=== PATIENT | female | born 1980 | race Caucasian/White ===

== ENCOUNTER 2020-06-26 13:25 | Outpatient (CLI) | payer OTHER, SELFPAY ==
--- NOTE | ~2020-06-26 | US_ITS ---
EXAMINATION: 1. US FNA w image guidance 2. US FNA additional DATE: 06/26/2020 14:34 INDICATION: Nontoxic multinodular goiter. TECHNIQUE: The procedure and its benefits, risks, and benefits were discussed with the patient. Risks specifical ly discussed included bleeding. The patient verbalized understanding of the risks and agreed to proce ed. The neck was prepped and draped in the usual sterile manner. 1% lidocaine was used for local ane sthesia. Five passes were made with a 25G needle into the lesion in right thyroid lobe. Appropriate needle location was documented with continuous sonographic guidance. Five passes were made with a 25G needle into the lesion in left thyroid lobe. Appropriate needle loc ation was documented with continuous sonographic guidance. There were no immediate complications. T he patient understood to call the ordering physician for results after a week and a half and verbaliz ed that understanding. FINDINGS: Grayscale ultrasound images demonstrate needles advanced into a 2.1 cm nodule in right thyroid lobe f or biopsy. Grayscale ultrasound images demonstrate needles advanced into a 2.9 cm nodule in left thyr oid lobe. IMPRESSION: 1. Ultrasound-guided fine needle aspiration of a right thyroid nodule. 2. Ultrasound-guided fine-needle aspiration of a left thyroid nodule. Reviewed, dictated and finalized at location A. SPLITTER IMPRESSION: 1. Ultrasound-guided fine needle aspiration of a right thyroid nodule. 2. Ultrasound-guided fine-needle aspiration of a left thyroid nodule.
== END 2020-06-26 13:26 | disposition home or self-care (01) ==
LOC: ANHIMG 13:38
PROVIDERS: PCP Nurse Practitioner Psychiatric/Mental Health; Visit Provider Otolaryngology
DX: E04.2 Nontoxic multinodular goiter (principal)
CPT/HCPCS: 10005; 10006; 88173; 88305

== ENCOUNTER 2020-12-16 11:23 | Outpatient (CLI) | payer OTHER, SELFPAY ==
[2020-12-16 13:58] LABS: SARS-CoV-2 Ag Negative (Negative)
== END 2020-12-16 11:24 | disposition home or self-care (01) ==
PROVIDERS: PCP Nurse Practitioner Psychiatric/Mental Health; Visit Provider Nurse Practitioner Psychiatric/Mental Health
DX: R09.81 Nasal congestion (principal); Z20.822 Contact with and (suspected) exposure to COVID-19
CPT/HCPCS: 87426; C9803

== ENCOUNTER 2021-01-20 12:02 | Outpatient (CLI) | payer OTHER, SELFPAY ==
[2021-01-20 12:25] LABS: Basophils Absolute Auto 0.04 K/mm3 (0.00-0.10); Basophils Percent Auto 0.4 % (0.0-1.0); Eosinophils Absolute Auto 0.26 K/mm3 (0.02-0.50); Eosinophils Percent Auto 2.3 % (1.0-6.0); Hematocrit 45.5 % (35.0-49.0); Hemoglobin 15.3 g/dL (12.0-15.0); Immature Granulocyte Absolute 0.04 K/mm3 (0.00-0.00); Immature Granulocyte Percent A 0.4 % (0.0-0.0); Lymphocytes Absolute Auto 2.66 K/mm3 (1.10-4.50); Lymphocytes Percent Auto 23.7 % (18.0-42.0); Mean Corpuscular HGB Conc 33.6 g/dL (32.0-36.0); Mean Corpuscular Hemoglobin 29.4 pg (27.0-31.0); Mean Corpuscular Volume 87.5 fL (78.0-102.0); Mean Platelet Volume 10.3 fl (9.2-11.8); Monocytes Absolute Auto 0.48 K/mm3 (0.10-0.90); Monocytes Percent Auto 4.3 % (2.0-11.0); Neutrophils Absolute Auto 7.7 K/mm3 (1.7-7.2); Neutrophils Percent Auto 68.9 % (50.0-70.0); Platelet Count Result 431 K/mm3 (150-420); White Blood Count 11.2 K/mm3 (4.8-10.8)
[2021-01-20 13:21] LABS: Alanine Aminotransferase 37 U/L (14-59); Albumin Level 4.1 g/dL (3.4-5.0); Alkaline Phosphatase 96 U/L (46-116); Anion Gap 11 mmol/L (8-16); Aspartate Amino Transferase 23 U/L (15-37); Bilirubin,Total 0.7 mg/dL (0.00-1.00); Blood Urea Nitrogen 10 mg/dL (7-18); Calcium 9.2 mg/dL (8.5-10.1); Carbon Dioxide 27 mmol/L (21-32); Chloride 104 mmol/L (98-108); Cholesterol 177 mg/dL (0-200); Estimated Glomerular Filt Rate > 60; Glucose 93 mg/dL (70-99); HDL Direct 44 mg/dL (40-60); LDL Cholesterol Calculated 122 mg/dL (<130); Osmolality Calculated 293 mOsm/kg (285-295); Potassium 4.3 mmol/L (3.5-5.1); Sodium 142 mmol/L (136-145); Thyroid Stimulating Hormone 1.28 uIU/mL (0.36-3.74); Total Protein 7.9 g/dL (6.4-8.2); Triglycerides 56 mg/dL (0-150)
[2021-01-20 13:28] LABS: Erythrocyte Sedimentation Rate 16 mm/hr (0-15)
== END 2021-01-20 12:03 | disposition home or self-care (01) ==
LOC: CHSLAB 12:04
PROVIDERS: PCP Family Medicine; Visit Provider Nurse Practitioner Psychiatric/Mental Health
DX: G44.009 Cluster headache syndrome, unspecified, not intractable (principal); Z13.220 Encounter for screening for lipoid disorders; G90.01 Carotid sinus syncope
CPT/HCPCS: 36415; 80053; 80061; 84443; 85025; 85652

== ENCOUNTER 2021-01-20 13:56 | Emergency (ER) | payer OTHER, SELFPAY ==
--- NOTE | ~2021-01-20 | CT_ITS ---
EXAMINATION: CT brain wo con DATE: 01/20/2021 14:39 INDICATION: Headache TECHNIQUE: Computed tomography (CT) of the head was performed without intravenous contrast. Sagittal and coronal reconstructions were performed. The mA was adjusted according to patient size. Iterative reconstruction technique was employed. The dose-length product was 605.33 mGy-cm. COMPARISON: None FINDINGS: No acute intracranial hemorrhage, acute infarction or abnormal extra axial fluid collection. Ventricl es are normal and symmetric. No mass/mass effect. The orbits, paranasal sinuses and mastoid air cells are normal. IMPRESSION: 1. Normal head CT. No acute intracranial process. Reviewed, dictated and finalized at location A.
[2021-01-20 14:00] VITALS: BP 163/104; PULSE 109; RESP 16; TEMP 36.6; O2SAT 97
--- NOTE | 2021-01-20 14:04 | ED.HA ---
HPI - Headache General Chief Complaint: Headache Stated Complaint: high blood pressure Source: patient and RN notes reviewed Mode of arrival: ambulatory Limitations: no limitations History of Present Illness MD elicited complaint: headache Onset (ago): week(s) (1) Onset description: gradually and while at rest Location: left, frontal, temporal and occipital Severity: severe Quality & Timing: throbbing and dull Exacerbating factors: light and noise Relieving factors: nothing and other (taking exedrin like candy ) Context: occurred at rest Associated symptoms: nausea and photophobia Treatments prior to arrival: ibuprofen Related Data Home Medications Medication Instructions Recorded Confirmed No Home Medications 01/20/21 01/20/21 Allergies Allergy/AdvReac Type Severity Reaction Status Date / Time No Known Allergies Allergy Verified 06/05/20 15:04 Review of Systems Review of Systems: All systems reviewed & are unremarkable except as noted in HPI and below Neurologic: Denies confusion, Denies vertigo, Denies dizziness, Denies syncope, Reports focal weakness (left face has been present for a year), Denies numbness and Denies weakness PMFSH Past Medical History Medical History (Updated 01/20/21 @ 15:22 by Elton Weston MD) Multinodular goiter Surgical History Surgical History (Updated 01/20/21 @ 14:46 by Elton Weston MD) Hx of cholecystectomy Social History Social History Smoking status: Never smoker Second hand tobacco smoke exposure: No Alcohol intake: current Substance use: current Substance use type: marijuana Course Course Emergency Course: I reviewed CT head results. Discharge Plan Discharge Clinical Impression: Headache Qualifiers: Headache type: tension-type Headache chronicity pattern: acute headache Intractability: not intractable Qualified Code(s): G44.209 - Tension-type headache, unspecified, not intractable Patient Disposition: Home, Self-Care Condition: Stable Instructions: Tension Headache (ED) Additional Instructions: All your primary care physician to consider getting started on blood pressure medication. Prescriptions: No Action No Home Medications RF: 0 Follow-up/Referrals: José Miguel,MD Xander [Primary Care Provider] - Time of Disposition: 15:
[2021-01-20 15:00] VITALS: BP 145/105; PULSE 97; RESP 18; O2SAT 95
[2021-01-20] MEDS: cloNIDine HCL 0.1 MG TABLET 0.2 MG PO (15:06)
[2021-01-20] MEDS: KETOROLAC (*BKC) 60 MG/2 ML VIAL IM (15:06)
[2021-01-20 15:26] VITALS: BP 155/107; PULSE 86; RESP 18; O2SAT 97
== END 2021-01-20 15:30 | disposition home or self-care (01) ==
PROVIDERS: Emergency Provider Emergency Medicine; PCP Family Medicine
DX: G44.209 Tension-type headache, unspecified, not intractable (principal)
CPT/HCPCS: 70450; 96372; 99283; 99284; A9270; J1885

== ENCOUNTER 2021-01-23 08:51 | Outpatient (CLI) | payer OTHER, SELFPAY ==
--- NOTE | ~2021-01-23 | US_ITS ---
EXAMINATION: US carotid duplex BI EXAM DATE: 01/23/2021 09:14 INDICATION: Neck pain, headaches. High blood pressure. TECHNIQUE: Grayscale, color and pulsed Doppler images of the cervical carotid arteries were obtained . The degree of vessel stenosis is placed in one of the following categories: normal, <50% stenosis, 50-69% stenosis, >=70% stenosis but less than near-occlusion, near-occlusion, or occlusion. Note that percent stenosis relative to normal distal artery lumen diameter is indirectly measured from velocit y measurements as described by Mike, et al. Radiology 2003; 229:340-346. There is no prior study fo r comparison. FINDINGS: RIGHT SIDE: Right common carotid artery peak systolic velocity (PSV in cm/s): 105 Right bulb/internal carotid artery peak systolic velocity (PSV in cm/s): 98 Right internal carotid artery end diastolic velocity (EDV in cm/s): 32 Right ICA/CCA peak systolic ratio: 0.9 Right external carotid artery peak systolic velocity (PSV in cm/s): 138 Right vertebral artery antegrade flow: yes There is no focal plaque identified. LEFT SIDE: Left common carotid artery peak systolic velocity (PSV in cm/s): 108 Left bulb/internal carotid artery peak systolic velocity (PSV in cm/s): 87 Left internal carotid artery end diastolic velocity (EDV in cm/s): 35 Left ICA/CCA peak systolic ratio: 0.8 Left external carotid artery peak systolic velocity (PSV in cm/s): 108 Left vertebral artery antegrade flow: yes There is no focal plaque identified. IMPRESSION: 1. Normal right internal carotid artery. 2. Normal left internal carotid artery. > Reviewed, dictated and finalized at location B.
== END 2021-01-23 08:52 | disposition home or self-care (01) ==
LOC: CHSIMG 08:52
PROVIDERS: PCP Nurse Practitioner Psychiatric/Mental Health; Visit Provider Nurse Practitioner Psychiatric/Mental Health
DX: M54.2 Cervicalgia (principal)
CPT/HCPCS: 93880

== ENCOUNTER 2023-08-26 09:48 | Outpatient (CLI) | payer OTHER, SELFPAY ==
--- NOTE | ~2023-08-26 | MR_ITS ---
EXAMINATION: MR brain/brain stem wo/w con DATE: 08/26/2023 12:52 INDICATION: Trigeminal neuralgia. TECHNIQUE: Magnetic resonance imaging (MRI) of the brain and brainstem was performed without and with 20 mL MultiHance intravenous contrast. COMPARISON: None. FINDINGS: There is no intracranial hemorrhage, acute infarction, or abnormal intracranial mass lesion . The ventricles are normal in size. There is mild mucosal thickening in the paranasal sinuses. The o rbits are normal. The mastoid air cells are normal. IMPRESSION: 1. Normal brain. Note that high-resolution imaging of the trigeminal nerves was not performed. High-r esolution sequences from the IAC protocol are recommended. Reviewed, dictated and finalized at location A. CE CADET IMPRESSION: 1. Normal brain. Note that high-resolution imaging of the trigeminal nerves was not performed. High-resolution sequences from the IAC protocol are recommended .
== END 2023-08-26 09:49 | disposition home or self-care (01) ==
LOC: CHSIMG 09:50
PROVIDERS: PCP Registered Nurse; Visit Provider Registered Nurse
DX: G50.0 Trigeminal neuralgia (principal)
CPT/HCPCS: 70553; A9577

== ENCOUNTER 2023-08-30 09:51 | Outpatient (CLI) | payer OTHER, SELFPAY ==
--- NOTE | ~2023-08-30 | MM_ITS ---
EXAMINATION: MM screening homero BI w shea HISTORY: Screening TECHNIQUE: Craniocaudal and mediolateral oblique 3-D tomosynthesis images were obtained and synthetic 2-D images were generated. CAD analysis was submitted and interpreted. COMPARISON: No prior mammogram is available for comparison at this institution. BREAST PARENCHYMAL COMPOSITION: Not dense: There are scattered areas of fibroglandular density. FINDINGS: There are bilateral breast asymmetries in the upper outer quadrant of the left breast poste riorly. There are benign breast calcifications. No architectural distortion. IMPRESSION: 1. Bilateral breast asymmetries. 2. Additional mammographic views and possible breast ultrasound are recommended. BI-RADS Category 0: Incomplete: Needs additional imaging evaluation. Reviewed, dictated and finalized at location A. SH ROLLS OPERATOR IMPRESSION: 1. Bilateral breast asymmetries. 2. Additional mammographic views and possible breast ultrasound are recommended . BI-RADS Category 0: Incomplete: Needs additional imaging evaluation.
== END 2023-08-30 09:52 | disposition home or self-care (01) ==
LOC: CHSIMG 09:53
PROVIDERS: PCP Registered Nurse; Visit Provider Registered Nurse
DX: Z12.31 Encounter for screening mammogram for malignant neoplasm of breast (principal); R92.8 Other abnormal and inconclusive findings on diagnostic imaging of breast
CPT/HCPCS: 77063; 77067

== ENCOUNTER 2023-09-02 09:36 | Outpatient (CLI) | payer OTHER, SELFPAY ==
--- NOTE | ~2023-09-02 | MMUS_ITS ---
EXAMINATION: MM diagnostic homero BI w shea, US breast BI limited HISTORY: Follow-up breast asymmetries TECHNIQUE: Additional 3-D tomosynthesis images of the breasts were performed and synthetic 2-D images were generated. CAD analysis was submitted and interpreted. High resolution bilateral limited breast ultrasound was performed. COMPARISON: 08/30/2023 BREAST PARENCHYMAL COMPOSITION: Not dense: There are scattered areas of fibroglandular density. FINDINGS: MAMMOGRAPHIC FINDINGS: There are persistent nodular asymmetries in lateral and both breasts. No suspicious calcifications or architectural distortion. ULTRASOUND: Complete bilateral US of all 4 quadrants of the breasts and retroareolar region was reviewed. Right breast: There are small cysts at 6 and 9:00 positions of the right breast measuring 4 mm or les s. Left breast: Normal heterogeneous echotexture without focal solid or cystic mass. No sonographic elsie elate to left breast asymmetries. IMPRESSION: 1. Probable benign bilateral breast asymmetries. No sonographic evidence for malignancy. 2. Recommend 6 month follow-up diagnostic bilateral mammogram. BI-RADS category 3, probably benign findings. Reviewed, dictated and finalized at location A. X SERVER ADMINISTRATOR IMPRESSION: 1. Probable benign bilateral breast asymmetries. No sonographic evidence for ma lignancy. 2. Recommend 6 month follow-up diagnostic bilateral mammogram. BI-RADS category 3, probably benign findings.
[2023-09-02 10:00] LABS: Hemoglobin A1C 5.5 % (<5.7)
[2023-09-02 12:25] LABS: Thyroid Stimulating Hormone 1.72 uIU/mL (0.36-3.74)
== END 2023-09-02 09:37 | disposition home or self-care (01) ==
LOC: CHSIMG 09:40
PROVIDERS: PCP Registered Nurse; Visit Provider Family Medicine
DX: E11.9 Type 2 diabetes mellitus without complications (principal); E06.3 Autoimmune thyroiditis; R92.8 Other abnormal and inconclusive findings on diagnostic imaging of breast
CPT/HCPCS: 36415; 76642; 77062; 77066; 83036; 84443; G0279

== ENCOUNTER 2023-09-04 08:33 | Outpatient (CLI) | payer OTHER, SELFPAY ==
--- NOTE | ~2023-09-04 | MR_ITS ---
EXAMINATION: Additional imaging MR DATE: 09/04/2023 11:45 INDICATION: Trigeminal neuralgia. TECHNIQUE: Magnetic resonance imaging (MRI) of the brain and brainstem was performed without and with 20 mL MultiHance intravenous contrast. COMPARISON: Brain MRI 08/26/2023 FINDINGS: There is no abnormal mass lesion. The ventricles are normal in size. The cisternal segments of the trigeminal nerves are normal. No vascular loop compression. The Meckel caves are enlarged. Th e internal auditory canals, inner ears, and tympanic cavities are normal. The mastoid air cells are n ormal. IMPRESSION: 1. Normal trigeminal nerves. No vascular loop compression. 2. Enlarged Meckel caves. This finding may be a normal variant, but can be associated with increased intracranial pressure. Reviewed, dictated and finalized at location A. BASIC IMPRESSION: 1. Normal trigeminal nerves. No vascular loop compression. 2. Enlarged Meckel caves. This finding may be a normal variant, but can be asso ciated with increased intracranial pressure.
== END 2023-09-04 08:34 | disposition home or self-care (01) ==
PROVIDERS: PCP Registered Nurse; Visit Provider Registered Nurse
DX: G50.0 Trigeminal neuralgia (principal)
CPT/HCPCS: 99199

== ENCOUNTER 2025-01-16 12:22 | Outpatient (CLI) | payer OTHER, SELFPAY ==
--- NOTE | ~2025-01-16 | US_ITS ---
EXAMINATION: US thyroid DATE: 01/16/2025 12:47 INDICATION: Thyroid nodule TECHNIQUE: Multiple ultrasound images of the thyroid were obtained. COMPARISON: None. FINDINGS: The right thyroid lobe measures 6.5 x 3.4 x 2.8 cm. The left thyroid lobe measures 6.6 x 3.8 x 3.3 c m. Thyroid isthmus measures up to 9 mm in thickness. There are a few solid isoechoic nodules which ar e wider than tall with smooth margins and without echogenic foci (TI-RADS 3, mildly suspicious , FNA if >=2.5 cm, annual followup is >=1.5 cm) in the left thyroid lobe the largest measuring 3.0 cm. Ther e is also a 4.0 cm TI RADS3 nodule inferior right thyroid with identical imaging features. IMPRESSION: 1. Multinodular goiter with multiple TI RADS3 nodules the 2 largest wedging 4.0 cm on the left and 3. 0 on the right which meet criteria for ultrasound guided biopsy which would be recommended. Reviewed, dictated and finalized at location A. IMPRESSION: 1. Multinodular goiter with multiple TI RADS3 nodules the 2 largest wedging 4.0 cm on the left and 3.0 on the right which meet criteria for ultrasound guided biopsy which would be recommended.
--- OUTSIDE RECORDS SUMMARY | 2025-01-16 12:26 | XMS_ITS | Data Portability ---
Author Organization [facility] , [facility] Address [address] [place] [address] Assessment No assessment recorded. Plan of Treatment Reminders Order Date Submit Date Provider Last Modified By Organization Details Last Modified Time Details Appointments None recorded. Lab HPV E6+E7 mRNA, qualitative PCR, [facility] [address] [place] [address], [address], 4 15:02:05 pap, LB - last pap 2020WNL, cervix, hx abnormal pap, no b/c used 2023 [facility], [address] [place], [address], 4 11:57:38 Referral None recorded. Procedures None recorded. Surgeries None recorded. Imaging None recorded. Medication Orders None recorded. Patient TargetsNo targets recorded. Patient Instructions Encounter Date Encounter Id Patient Instructions Last Modified By Organization Details Last Modified Time 01/17/2024 [id number] body mass index: care instructions tyenne Not available 01/17/2024 13:49:21 Reason for Referral None Reported. Results Created Date Observation Date Name Description Value Unit Range Abnormal Flag Note LastModifiedBy Organization Detail LastModifiedTime 01/17/20 24 01/19/2024 HPV HIGH RISK HPV high risk Negati ve negati ve normal The HPV High Risk assay is inten ded for use as co-te sting with cytol ogy and not as a subst itute for regul ar cervi gabe cytol ogy scree mane. This assay is not inten ded for use as a scree mane devic e for women under age 30 with rodrigo l cervi gabe cytol ogy. Not Available [address] [place], [address], 01/19/2024 15:02:05 01/17/20 24 01/25/2024 THINP REP TIS PAP clinical information: normal Previ ous abnor mal NO B/C USED Not Available [address] [place], [address], 01/25/2024 11:57:37 01/17/20 24 01/25/2024 THINP REP TIS PAP LMP: normal 12/29 Not Available [address], [address], 01/25/2024 11:57:37 01/17/20 24 01/25/2024 THINP REP TIS PAP prev. Pap: normal LAST PAP 2020 WNL Not Available [address] [place], [address], 01/25/2024 11:57:37 01/17/20 24 01/25/2024 THINP REP TIS PAP prev. BX: normal NONE GIVEN Not Available [address] [place], [address], 01/25/2024 11:57:37 01/17/20 24 01/25/2024 THINP REP TIS PAP source: normal Cervi x Not Available [address] [place], [address], 01/25/2024 11:57:37 01/17/20 24 01/25/2024 THINP REP TIS PAP statement of adequacy: normal Satis facto ry for evalu ation . Endoc ervic al/tr ansfo rmati on zone compo nent prese nt. Parti ally obscu ring infla mmati on Not Available [address] [address] [place], [address], 01/25/2024 11:57:37 01/17/20 24 01/25/2024 THINP REP TIS PAP interpretati on/result: normal Cytol ogy Resul ts: Negat noble for intra epith elial lesio n or malhever jhoan . Not Available [address] [address], [place], [address], 01/25/2024 11:57:37 01/17/20 24 01/25/2024 THINP REP TIS PAP comment: normal This Pap test has been evalu ated with compu ter alfred lucas techn ology . Micro scopi c featu res prese nt sugge stive of an inter ferin g subst ance, inclu ding cellu lar debri s, mucus , or possi ble lubri cant (gurpreet ent or provi tiffanie use). Use of lubri cant is not recom mara d. Not Available [address], [place], [address], 01/25/2024 11:57:37 01/17/20 24 01/25/2024 THINP REP TIS PAP cytotechnolo gist: normal RRD, CT( CP) CT Scree mane Locat ion: [facility] [address] [place] [address] Not Available [address] [address] [place], [address], 01/25/2024 11:57:37 01/17/20 24 01/25/2024 THINP REP TIS PAP review cytotechnolo gist: normal MSJ, CT( CP) CT Scree mane locat ion: [facility] [address] [place] [address] Not Available [address] [address] [place], [address], 01/25/2024 11:57:37 01/17/20 24 01/25/2024 THINP REP TIS PAP comment EXPLA NATOR Y NOTE: The Pap is a scree mane test for cervi gabe cance r. It is not a diagn ostic test and is subje ct to false negat noble and false posit noble resul ts. It is most relia ble when a satis facto ry sampl e, regul tatum obtai jah, is submi tted with relev ant clini gabe findi ngs and histo ry, and when the Pap resul t is evalu ated along with histo remi and curre nt clini gabe infor matio n. Not Available [address] [address] [place], [address], 01/25/2024 11:57:37 Result Notes None recorded. 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 ; Progress : Stable Added By: Kentrell Frederick Add to Current Problems : YES ProblemS tatus: Current Not Available [facility] 2 17:46:52 Pain Completed 201506/06/2016 Lower abdomina l pain, unspecif ied; Progress : Stable Added By: Claudia Willingham Add to Current Problems : NO ProblemS tatus: Resolve Not Available [facility] 2 17:46:59 Sampling of vagina for Papanico laou smear Active 2020 Encounte r for gynecolo gical examinat ion (general ) (routine ) without abnormal findings ; Progress : Stable Added By: Inés Giron Add to Current Problems : YES ProblemS tatus: Current Not Available [facility] 2 17:46:51 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 ; Location : None Progress : Stable Added By: lCaudia Willingham Add to Current Problems : NO ProblemS tatus: Current Not Available [facility] 2 17:46:57 Abnormal weight gain 042110425 Completed 201602/12/2017 Excessiv e weight gain; Location : None Progress : Stable Added By: Farhana Mello Add to Current Problems : YES ProblemS tatus: Resolve Not Available [facility] 2 21:30:11 Screenin g for malignan t neoplasm of cervix Active 2020 Encounte r for screenin g for malignan t neoplasm of cervix; Progress : Stable Added By: Inés Giron Add to Current Problems : YES ProblemS tatus: Current Not Available [facility] 2 17:47:06 Problem Notes None recorded. Procedures Surgical History Date Name Laterality Status Provider Name and Address Organization Details Recorded Time 4 Most Recent Mammogram completed [facility] 01/17/2024 12:32:24 Date of Last Pap Smear completed [facility] 01/17/2024 12:34:06 Gall bladder completed [facility] 01/17/2024 12:32:24 Imaging Results None recorded. Procedure Notes None recorded. Medical Equipment None Reported. Allergies No known drug allergies Medications Name Sig Start Date Stop Date Status Note LastModified by Organization Details LastModified Time phentermi ne 15 mg capsule TAKE 1 CAPSULE BY MOUTH EVERY MORNING 01/16 completed Not Available Not Available Not Available lorazepam 0.5 mg tablet TAKE 1 TABLET BY MOUTH ONCE 30 TO 60 MINUTES PRIOR TO PROCEDUR E active Not Available Not Available No t Available gabapenti n 100 mg capsule TAKE 1 CAPSULE BY MOUTH THREE TIMES DAILY active Not Available Not Available No t Available fluoxetin e 20 mg capsule take 1 capsule (20 mg) by oral route daily 1 week prior to menses 01/16 completed FLUoxeti ne 20 mg oral capsule RxNorm: 641433 Allow Substitu tion: True Refill Denied: No Edited by: Kentrell Villalpando) on 11/19/19 21 Stopped by: Kentrell Villalpando) on Not Available Not Available Not Available Vesicare 10 mg tablet take 1 tablet (10 mg) by oral route once daily active Vesicare 10 mg oral tablet RxNorm: 976981 Allow Substitu tion: False Refill Denied: No Refill DateOccu rred: 11/19/19 21 Edited by: Kentrell Villalpando) on 11/19/19 21 Stopped by: Kentrell Villalpando) on Not Available Not Available Not Available Topamax Take 1 tablet(s ) by mouth daily 04/07 completed Topamax 50mg Tablet RxNorm: 081426 Allow Substitu tion: True Refill Denied: No Refill DateOccu rred: 01/06/20 13 Not Available Not Available Not Available Vitals Date Recorded Body weight Systolic And Diastolic Provider Name and Address Organization Details Last Updated DateTime 01/17/2024 003331.2 g 118/72 mm[Hg] Yocasta Finn [facility] 01/17/2024 12:48:38 Social History Question Answer Notes LastModified by [facility] Details LastModified Time Tobacco Smoking Status Current Some Day Smoker Yocasta Finn [facility] 01/17/2024 12:32:24 Are You Blind Or Do You Have Difficulty Seeing? No Information not available 01/17/2024 Are You Deaf Or Do You Have Serious Difficulty Hearing? No Information not available 01/17/2024 What Type Of Diet Are You Following? REGULAR Information not available 01/17/2024 Which Illicit Or Recreational Drugs Have You Used? Marijuana Information not available 01/17/2024 How Many Children Do You Have? 2 Information not available 01/17/2024 What Is Your Relationship Status? Information not available 01/17/2024 Are You Sexually Active? Yes Information not available 01/17/2024 At What Age Did You Start Smoking Tobacco? 41 Information not available 01/17/2024 How Much Tobacco Do You Smoke? 1 PPW Information not available 01/17/2024 How Many Years Have You Smoked Tobacco? 2 Information not available 01/17/2024 Sex: Unknown Functional Status Question Answer Note LastModified by Organizat ion Details LastModified Time Do you use any illicit or recreational drugs? Yes Information not available 01/17/2024 Are you currently employed? No Information not available 01/17/2024 Mental Status None recorded. Family History Relationship Description Onset Age of this Age Resolved Age Notes LastModified by Organization Details LastModified Time Paternal Grandmother Malignant neoplasm of ovary Not available 2023 12:32:24 Mother Hyperthyroid ism Not available 2023 12:32:24 Mother Depressive disorder Not available 2023 12:32:24 Maternal Grandmother Malignant tumor of cervix Not available 2023 12:32:24 Father Hypercholest erolemia Not available 2023 12:32:24 Father Hypertensive disorder Not available 2023 12:32:24 Father Diabetes mellitus Not available 2023 12:32:24 Medical History Condition Response Autoimmune disease Y Gynecological History Statement/Question Response Flow Heavy Date of last HPV 11/18/2020 Frequency of Cycle (Q days) 21-24 Date of LMP 12/30/2023 Date of Last Pap Smear 11/21/2020 Duration of Flow (days) 4-5 Most Recent Mammogram 08/12/2023 Current Control Method None Age at Menarche 12 Obstetrics History GPAL:G 0 P 0 0 0 0 Past Encounters Encounter ID Performer Location Encounter Start Date Encounter Closed Date Diagnosis/Indication Diagnosis SNOMED-CT Code Diagnosis ICD10 Code Diagnosis Note [id number] [facility] [address] [place] [address] 01/17/2024 12:30:42 01/17/2024 13:09:54 Gynecologic examination 62609196 Z01.419 COUNSELING was provided today regarding the following topics: healthy eating habits. Patient education given on weight management ., regular exercise. Patient handout given on Fitness, breast self-exam, STD prevention , COVID Vaccine: R/B of vaccine discussed today., and Calcium and Vitamin D. Advised to avoid sick contacts, practice social distancing , good handwashin g. If you develop respirator y symptoms, fever,coug h, or shortness of breath you should contact healthcare provider immediatel y. and Salvage Diver Specific: Annual Salvage Diver screening: , monthly self breast exam, calcium supplement ation, Multivitam in daily, , maintain recommende d screening guidelines FOLLOW-UP: in one year. Screening for malignant neoplasm of cervix 601254420 Z12.4 Depression screening 171 701013 Z13.31 refer to intake screening Menorrhagia 645278876 N9 2.0 will discuss surgical options with physician Female str ess incontinence 92478657 N39.3 plan to follow up for UDT and to see Dr Mckeon., Prefers [place] office due to distance to clinic. Will call to help make an appt. Health Concerns Section Related Observation LastModified by Organization Detai ls LastModified Time None Recorded Concern Status LastModified by Organization Details LastModified Time None Recorded Advance Directives Directive None Recorded Payers Insurance Date Sequence Insurance Name Policy Number Policy Ibanez Covered Member ID Ibanez Member ID Guarantor Name 04/20/2024 1 [facility] - DOS ON OR AFTER 21 (MEDICAID REPLACEMENT - HMO) Damien Vásquez [id number] Octoberkenna Vásquez Notes Date Note Type Note Provider Name and Address Organization Details Recorded Time 01/17/2024 text/html Annual GYNReport ed bypatient.History: no gynecologic complaints Menstrual cycle:Severe dysmenorrhea;Eran rhagia; Wants to discuss ablation Urinary symptoms:Incontine nce Vulva:No genital lesion Vagina:Normal vaginal discharge Breast:No breast pain; No breast lump; No nipple discharge Current Contraception:[place] gamous relationship; control not practiced Sexual complaints:No sexual complaints Menopausal Symptoms:Hot flashes;Insomnia due to night sweats(Occasional) Psychological symptoms:No depression; No anxiety Preventive measures:Encourage self breast examination; Encourage regular exercise; Encourage regular mammograms starting age 40; Followed with Q3 year pap smear and high risk HPV typingNotes:Jo Ann mendosa, lives in [facility] now. Jacque Chen, GREGORY [address] [facility], [place], [address], [facility] 01/18/2024 22:03:52 OBGyn Episode No OBEpisode recorded.
--- OUTSIDE RECORDS SUMMARY | 2025-01-16 12:26 | XMS_ITS ---
Author Organization Unknown Address [address] [place] [phone] Phone Care Team Providers Care Photographer Lithographic Name Role Phone OSWALDO DARYA DIRECTOR STATISTICAL PROGRAMMING Attending Unavailable BLAZE Guillen Primary Unavailable Immunization Immunization Date Status Additional Notes Code Code System COVID-19, mRNA, LNP-S, PF, 3 0 mcg/0.3 mL dose 03/03/2021 Completed 208 CVX Social History Type Status Start Date End Date Code Code Syst em Smoking History Never smoker (Never Smoked) 448317561 SNOMED CT Sex Female Hospital Discharge Instructions Should you have any questions prior to discharge, please contact a member of your healthcare team. If you have left the hospital and have any questions, please contact your primary care physician. Reason For Referral No Data Found Plan of Treatment US Pelvis/Transvaginal (36714) 10/26/19 US Pelvis (92564) 10/25/2020 US Pelvis/Transvaginal (05935) 10/26/19 US Pelvis (76287) 10/25/2020 US Thyroid (50795) 06/09/2021 Encounters Encounter Diagnosis Start Date Code Code Sys tem Urinary incontinence 09/20/2023 567049066 SNOMED- CT Personal Care Team Section Performer Name Performer Role Active Date Inactive Da KAREEM Phoenix PCP - Primary care physician 2021-06-09
--- OUTSIDE RECORDS SUMMARY | 2025-01-16 12:26 | XMS_ITS ---
Author Organization Unknown Address [address] [place] [phone] Phone Care Team Providers Care Dry Cell Battery Assembler Name Role Phone OSWALDO DARYA FIRING PIN GAUGER Attending Unavailable BLAZE Guillen Primary Unavailable Immunization Immunization Date Status Additional Notes Code Code System COVID-19, mRNA, LNP-S, PF, 3 0 mcg/0.3 mL dose 03/03/2021 Completed 208 CVX Social History Type Status Start Date End Date Code Code Syst em Smoking History Never smoker (Never Smoked) 901412514 SNOMED CT Sex Female Hospital Discharge Instructions Should you have any questions prior to discharge, please contact a member of your healthcare team. If you have left the hospital and have any questions, please contact your primary care physician. Reason For Referral No Data Found Plan of Treatment US Pelvis/Transvaginal (63152) 10/26/19 US Pelvis (70660) 10/25/2020 US Pelvis/Transvaginal (64276) 10/26/19 US Pelvis (62791) 10/25/2020 US Thyroid (95808) 06/09/2021 Encounters Encounter Diagnosis Start Date Code Code Sys tem Urinary incontinence 09/06/2023 994287912 SNOMED- CT Personal Care Team Section Performer Name Performer Role Active Date Inactive Da KAREEM Phoenix PCP - Primary care physician 2021-06-09
--- OUTSIDE RECORDS SUMMARY | 2025-01-16 12:26 | XMS_ITS | Encounter Summary ---
Author Organization [facility] Address [address] [place] [address] Care Team Providers Care Customer Experience Associate Name Role Phone Jose Guerrero MD Primary Care Provider [phone] Xander Valdez MD Primary Care Provider Encounter Details Date Type Department Care Team (Late st Contact Info) Description 12/17/2018 Abstract SFL CONVERSION [address] [place] [address] , Generic Conversion, Social History Tobacco Use Types Packs/Day Years Used Date Smoking Tobacco: Never Assessed Comments Unknown Sex and Gender Information Value Date Recorded Sex Assigned at Not on file Legal Sex Female 11:22 PM CDT Gender Identity Not on file Sexual Orientation Not on file documented as of this encounter Plan of Treatment Not on file documented as of this encounter Visit Diagnoses Not on filedocumented in this encounter Care Teams Customer Experience Associate Relationship Specialty Start Date End Date Jose Guerrero MD [address] [place] [phone] PCP - General FAMILY PRACTICE 05/01/19 09/09/21 Xander Valdez MD [address] [place] [phone] PCP - General FAMILY PRACTICE 09/10/21 documented as of this encounter
--- OUTSIDE RECORDS SUMMARY | 2025-01-16 12:27 | XMS_ITS | Clinical Summary ---
Author Organization [facility] Address [address] [place] [address] Care Team Providers Care Collections Curator Name Role Phone Xander Valdez MD Primary Care Provider [phone] Social History Tobacco Use Types Packs/Day Years Used Date Smoking Tobacco: Never Assessed Comments Unknown Sex and Gender Information Value Date Recorded Sex Assigned at Not on file Legal Sex Female 11:22 PM CDT Gender Identity Not on file Sexual Orientation Not on file Plan of Treatment Health Maintenance Due Date Last Done Comments Cervical Cancer Screening Pa p Smear (Age 30 to 64) Every 3 Years 1979 Colorectal Cancer Screening Colonoscopy (10 Years) 1979 Annual Physical 10/30/1982 Hepatitis C 10/30/1997 DTaP, Tdap and Td Vaccines ( 1 - Tdap) 10/30/1998 Hepatitis B Vaccines (1 of 3 - 19+ 3-dose series) 10/30/1998 Cervical Cancer Screening Pa p with HPV Testing (Age 30 to 64) Every 5 Years 10/30/2009 Cervical Cancer Screening with HPV 10/30/2009 Mammogram Screening 2019 COVID-19 Vaccine (2 - 2023-2 5 season) 2024 03/03/2021 HPV Vaccines Aged Out No longer eligi ble based on patient's age to complete this topic Meningococcal B Vaccine Aged Out No l onger eligible based on patient's age to complete this topic Meningococcal Vaccine Aged Out No kwame maxim eligible based on patient's age to complete this topic Pneumococcal Vaccine: Pediat rics (0 to 5 Years) and At-Risk Patients (6 to 49 Years) Aged Out No longer eligi ble based on patient's age to complete this topic RSV Immunizations Under 20 Months Aged Out No longer eligible based on patient's age to complete this topic [facility] Care Teams Collections Curator Relationship Specialty Start Date End Date Xander Valdez MD [address] [place] [phone] PCP - General FAMILY PRACTICE 09/10/21
== END 2025-01-16 12:23 | disposition home or self-care (01) ==
LOC: CHSIMG 12:24
PROVIDERS: PCP Family Medicine; Visit Provider Family Medicine
DX: E04.2 Nontoxic multinodular goiter (principal)
CPT/HCPCS: 76536

== ENCOUNTER 2025-01-22 13:48 | Outpatient (CLI) | payer OTHER, SELFPAY ==
--- NOTE | ~2025-01-22 | MM_ITS ---
EXAMINATION: MM screening homero BI w shea HISTORY: Screening TECHNIQUE: Craniocaudal and mediolateral oblique 3-D tomosynthesis images were obtained and synthetic 2-D images were generated. CAD analysis was submitted and interpreted. COMPARISON: Comparison to multiple prior studies sequentially, with oldest reviewed study dated 08/30. BREAST PARENCHYMAL COMPOSITION: Not dense: There are scattered areas of fibroglandular density. FINDINGS: There is no evidence of suspicious mass, calcification, or architectural distortion to sugg est malignancy in either breast. There has been no suspicious interval change. IMPRESSION: 1. No mammographic evidence of malignancy. 2. Recommend routine screening mammography in one year. BI-RADS Category 1: Negative Reviewed, dictated and finalized at location B.
--- OUTSIDE RECORDS SUMMARY | 2025-01-22 13:58 | XMS_ITS ---
Author Organization Unknown Address [address] [place] [phone] Phone Care Team Providers Care Vulcanized Fiber Unit Operator Name Role Phone OSWALDO DARYA MICRO COMPUTER DATA PROCESSOR Attending Unavailable BLAZE Guillen Primary Unavailable Immunization Immunization Date Status Additional Notes Code Code System COVID-19, mRNA, LNP-S, PF, 3 0 mcg/0.3 mL dose 03/03/2021 Completed 208 CVX Social History Type Status Start Date End Date Code Code Syst em Smoking History Never smoker (Never Smoked) 240619087 SNOMED CT Sex Female Hospital Discharge Instructions Should you have any questions prior to discharge, please contact a member of your healthcare team. If you have left the hospital and have any questions, please contact your primary care physician. Reason For Referral No Data Found Plan of Treatment US Pelvis/Transvaginal (31927) 10/26/19 US Pelvis (63311) 10/25/2020 US Pelvis/Transvaginal (21511) 10/26/19 US Pelvis (04599) 10/25/2020 US Thyroid (15321) 06/09/2021 Encounters Encounter Diagnosis Start Date Code Code Sys tem Urinary incontinence 09/20/2023 465096737 SNOMED- CT Personal Care Team Section Performer Name Performer Role Active Date Inactive Da KAREEM Phoenix PCP - Primary care physician 2021-06-09
--- OUTSIDE RECORDS SUMMARY | 2025-01-22 13:58 | XMS_ITS | Encounter Summary ---
Author Organization [facility] Address [address] [place] [address] Care Team Providers Care Supplier Quality Engineering Manager Name Role Phone Jose Guerrero MD Primary Care Provider [phone] Xander Valdez MD Primary Care Provider Encounter Details Date Type Department Care Team (Late st Contact Info) Description 12/17/2018 Abstract SFL CONVERSION [address] [place] [address] , Generic Conversion, Social History Tobacco Use [...] on filedocumented in this encounter Care Teams Supplier Quality Engineering Manager Relationship Specialty Start Date End Date Jose Guerrero MD [address] [place] [phone] PCP - General FAMILY PRACTICE 05/01/19 09/09/21 Xander Valdez MD [address] [place] [phone] PCP - General FAMILY PRACTICE 09/10/21 documented as of this encounter
--- OUTSIDE RECORDS SUMMARY | 2025-01-22 13:59 | XMS_ITS ---
Author Organization Unknown Address [address] [place] [phone] Phone Care Team Providers Care Inventory Specialist Manager Name Role Phone OSWALDO DARYA FILM READER Attending Unavailable BLAZE Guillen Primary Unavailable Immunization Immunization Date Status Additional Notes Code Code System COVID-19, mRNA, LNP-S, PF, 3 0 mcg/0.3 mL dose 03/03/2021 Completed 208 CVX Social History Type Status Start Date End Date Code Code Syst em Smoking History Never smoker (Never Smoked) 467752959 SNOMED CT Sex Female Hospital Discharge Instructions Should you have any questions prior to discharge, please contact a member of your healthcare team. If you have left the hospital and have any questions, please contact your primary care physician. Reason For Referral No Data Found Plan of Treatment US Pelvis/Transvaginal (05346) 10/26/19 US Pelvis (30259) 10/25/2020 US Pelvis/Transvaginal (44136) 10/26/19 US Pelvis (86076) 10/25/2020 US Thyroid (58780) 06/09/2021 Encounters Encounter Diagnosis Start Date Code Code Sys tem Urinary incontinence 09/06/2023 450499787 SNOMED- CT Personal Care Team Section Performer Name Performer Role Active Date Inactive Da KAREEM Phoenix PCP - Primary care physician 2021-06-09
--- OUTSIDE RECORDS SUMMARY | 2025-01-22 13:59 | XMS_ITS | Clinical Summary ---
Author Organization [facility] Address [address] [place] [address] Care Team Providers Care Icu Tech Name Role Phone Xander Valdez MD Primary Care Provider [phone] Social History Tobacco Use Types Packs/Day Years [...] patient's age to complete this topic Insurance [facility] Care Teams Icu Tech Relationship Specialty Start Date End Date Xander Valdez MD [address] [place] [phone] PCP - General FAMILY PRACTICE 09/10/21
--- OUTSIDE RECORDS SUMMARY | 2025-01-22 13:59 | XMS_ITS | Data Portability ---
Author Organization [facility] , [facility] Address [address] [place] [address] Assessment No assessment recorded. Plan of Treatment Reminders Order Date Submit Date Provider Last Modified By Organization Details Last Modified Time Details Appointments None recorded. Lab HPV E6+E7 mRNA, qualitative PCR, cervix 20[facility], [address] [place] [address], [address], 4 15:02:05 pap, LB - last pap 2020WNL, cervix, hx abnormal pap, no b/c used 2023 [facility], [address] [place], [address], 4 11:57:38 Referral None recorded. Procedures None recorded. Surgeries None recorded. Imaging None recorded. Medication Orders None recorded. Patient TargetsNo targets recorded. Patient Instructions Encounter Date Encounter Id Patient Instructions Last Modified By Organization Details Last Modified Time 01/17/2024 [id number] body mass index: care instructions tyenne Not [...] l cervi gabe cytol ogy. Not Available Almyra Femi [address] [place], [address], 01/19/2024 15:02:05 01/17/20 24 01/25/2024 THINP REP TIS PAP clinical information: normal Previ ous abnor mal NO B/C USED Not Available [address] [place], [address], 01/25/2024 11:57:37 01/17/20 24 01/25/2024 THINP REP TIS PAP LMP: normal 12/29 Not Available [address], [address], 01/25/2024 11:57:37 01/17/20 24 01/25/2024 THINP REP TIS PAP prev. Pap: normal LAST PAP 2020 WNL Not Available [address] [place], [address], 01/25/2024 11:57:37 01/17/20 24 01/25/2024 THINP REP TIS PAP prev. BX: normal NONE GIVEN Not Available [address] [place], [address], 01/25/2024 11:57:37 01/17/20 24 01/25/2024 THINP REP TIS PAP source: normal Cervi x Not Available [address] [place], [address], 01/25/2024 11:57:37 01/17/20 24 01/25/2024 THINP REP TIS PAP statement of adequacy: normal Satis facto ry for evalu ation . Endoc ervic al/tr ansfo rmati on zone compo nent prese nt. Parti ally obscu ring infla mmati on Not Available [address] [address] [place], [address], 01/25/2024 11:57:37 01/17/20 24 01/25/2024 THINP REP TIS PAP interpretati on/result: normal Cytol ogy Resul ts: Negat noble for intra epith elial lesio n or malhever jhoan . Not Available [address] [address] [address], [place], [address], 01/25/2024 11:57:37 01/17/20 24 01/25/2024 THINP REP [...] is not recom mara d. Not Available [address] [address] [address], [place], [address], 01/25/2024 11:57:37 01/17/20 24 01/25/2024 THINP REP TIS PAP cytotechnolo gist: normal RRD, CT( CP) CT Scree mane Locat ion: [facility] [address] [place] [facility] [place] [address] Not Available [address] [address] [place], [address], 01/25/2024 11:57:37 01/17/20 24 01/25/2024 THINP REP TIS PAP review cytotechnolo gist: normal MSJ, CT( CP) CT Scree mane locat ion: [facility] [address] [place] [address] Not Available [address] [address] [place], [address], 01/25/2024 11:57:37 01/17/20 24 01/25/2024 THINP REP [...] clini gabe infor matio n. Not Available [address] [address] [place], [address], 01/25/2024 11:57:37 Result Notes None recorded. Problems Name Problem SNOMED Code Status Onset Date Resolution Date Notes Provider Name and Address Organization Details Recorded Time Female genital organ symptoms Completed 201506/06/2016 pelvic pain; Progress : Stable Added By: Claudia Willingham Add to Current Problems : NO ProblemS tatus: Resolve Not Available [facility] 2 17:46:59 Premenst rual tension syndrome 20372401 Active 2020 Premenst rual tension syndrome ; Progress : Stable Added By: Kentrell Frederick Add to Current Problems : YES ProblemS tatus: Current Not Available [facility] 2 17:46:52 Pain Completed 201506/06/2016 Lower abdomina l pain, unspecif ied; Progress : Stable Added By: Claudia Willingham Add to Current Problems : NO ProblemS tatus: Resolve Not Available [facility] 2 17:46:59 Sampling of vagina for Papanico laou smear Active 2020 Encounte r for gynecolo gical examinat ion (general ) (routine ) without abnormal findings ; Progress : Stable Added By: Inés Giron Add to Current Problems : YES ProblemS tatus: Current Not Available [facility] 2 17:46:51 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 ; Location : None Progress : Stable Added By: Claudia Willingham Add to Current Problems : NO ProblemS tatus: Current Not Available [facility] 2 17:46:57 Abnormal weight gain 643701375 Completed 201602/12/2017 Excessiv e weight gain; Location : None Progress : Stable Added By: Farhana Mello Add to Current Problems : YES ProblemS tatus: Resolve Not Available [facility] 2 21:30:11 Screenin g for malignan t neoplasm of cervix Active 2020 Encounte r for screenin g for malignan t neoplasm of cervix; Progress : Stable Added By: Inés Giron Add to Current Problems : YES ProblemS tatus: Current Not Available [facility] 2 17:47:06 Problem Notes None recorded. Procedures Surgical History Date Name Laterality Status Provider Name and Address Organization Details Recorded Time 4 Most Recent Mammogram completed [facility] 01/17/2024 12:32:24 Date of Last Pap Smear completed [facility] 01/17/2024 12:34:06 Gall bladder completed [facility] 01/17/2024 12:32:24 Imaging Results None recorded. Procedure [...] FLUoxeti ne 20 mg oral capsule RxNorm: 924648 Allow Substitu tion: True Refill Denied: No Edited by: Kentrell Villalpando) on 11/19/19 21 Stopped by: Kentrell Villalpando) on Not Available Not Available Not Available Vesicare 10 mg tablet take 1 tablet (10 mg) by oral route once daily active Vesicare 10 mg oral tablet RxNorm: 866231 Allow Substitu tion: False Refill Denied: No Refill DateOccu rred: 11/19/19 21 Edited by: Kentrell Villalpando) on 11/19/19 21 Stopped by: Kentrell Villalpando) on Not Available Not Available Not Available Topamax Take 1 tablet(s ) by mouth daily 04/07 completed Topamax 50mg Tablet RxNorm: 562149 Allow Substitu tion: True Refill Denied: No Refill DateOccu rred: 01/06/20 13 Not Available Not Available Not Available Vitals Date Recorded Body weight Systolic And Diastolic Provider Name and Address Organization Details Last Updated DateTime 01/17/2024 311445.2 g 118/72 mm[Hg] Yocasta Finn [facility] Hokey Pokey IV 01/17/2024 12:48:38 Social History Question Answer Notes LastModified by [employer] Details LastModified Time Tobacco Smoking Status Current Some Day Smoker Yocasta Finn [facility] [employer] Hokey Pokey IV 01/17/2024 12:32:24 Are You Blind Or [...] SNOMED-CT Code Diagnosis ICD10 Code Diagnosis Note [id number] MANFRED Gutierrez [facility] [address] [place] [address] 01/17/2024 12:30:42 01/17/2024 13:09:54 Gynecologic examination 83786869 Z01.419 COUNSELING was provided today regarding the [...] should contact healthcare provider immediatel y. and Ladle Cleaner Specific: Annual Ladle Cleaner screening: , monthly self breast exam, calcium supplement ation, Multivitam in daily, , maintain recommende d screening guidelines FOLLOW-UP: in one year. Screening for malignant neoplasm of cervix 416540103 Z12.4 Depression screening 171 143736 Z13.31 refer to intake screening Menorrhagia 844834533 N9 2.0 will discuss surgical options with physician Female str ess incontinence 46282223 N39.3 plan to follow up for UDT and to see Dr Mckeon., Prefers [place] office due to distance to clinic. Will call to help make an appt. Health Concerns Section Related Observation LastModified by Organization Detai ls LastModified Time None Recorded Concern Status LastModified by Organization Details LastModified Time None Recorded Advance Directives Directive None Recorded Payers Insurance Date Sequence Insurance Name Policy Number Policy Ibanez Covered Member ID Ibanez Member ID Guarantor Name 04/20/2024 1 [facility] - DOS ON OR AFTER 21 (MEDICAID REPLACEMENT - HMO) Damien Vásquez [id number] Octoberkenna Vásquez Notes Date Note Type Note Provider Name and Address Organization Details Recorded Time 01/17/2024 text/html Annual GYNReport ed bypatient.History: no gynecologic complaints Menstrual cycle:Severe dysmenorrhea;Eran rhagia; Wants to discuss ablation Urinary symptoms:Incontine nce Vulva:No genital lesion Vagina:Normal vaginal discharge Breast:No breast pain; No breast lump; No nipple discharge Current Contraception:Goshen gamous relationship; control not practiced Sexual complaints:No sexual complaints Menopausal Symptoms:Hot flashes;Insomnia due to night sweats(Occasional) Psychological symptoms:No depression; No anxiety Preventive measures:Encourage self breast examination; Encourage regular exercise; Encourage regular mammograms starting age 40; Followed with Q3 year pap smear and high risk HPV typingNotes:Jo Ann mendosa, lives in [facility] now. Jacque Chen, GREGORY [address] [facility], [place], [address], [facility] 01/18/2024 22:03:52 OBGyn Episode No OBEpisode recorded.
== END 2025-01-22 13:49 | disposition home or self-care (01) ==
LOC: CHSIMG 13:49
PROVIDERS: PCP Family Medicine; Visit Provider Family Medicine
DX: Z12.31 Encounter for screening mammogram for malignant neoplasm of breast (principal)
CPT/HCPCS: 77063; 77067

== ENCOUNTER 2025-04-11 12:35 | Outpatient (CLI) | payer OTHER, SELFPAY ==
--- NOTE | ~2025-04-11 | US_ITS ---
EXAMINATION: US FNA w image guidance, US FNA additional DATE: 04/11/2025 13:54 INDICATION: Bilateral thyroid nodules TECHNIQUE: A time-out was performed to verify the patient's name, date of , and procedure to be performed. The procedure and its benefits and risks were discussed with the patient. Risks specifically discussed included bleeding and infection. The patient understood the risks and agreed to proceed. Attention was first turned to the left thyroid nodule. The left neck was prepped and draped in the usual sterile manner. 4 mL 1% lidocaine was used for local anesthesia. 5 passes were made with a 25G needle into the lesion. Appropriate needle location was documented with continuous sonographic guidance. A sterile bandage was applied. Attention was then turned to the right thyroid nodule. The right side of the neck was prepped and draped in usual sterile manner. Additional 4 mL 1% lidocaine was used for local anesthesia. 5 passes were made with a 25G needle into the lesion. Appropriate needle location was documented with continuous sonographic guidance. A sterile bandage was applied. There were no immediate complications. FINDINGS: Grayscale ultrasound images demonstrate biopsy needles advanced into a 4.2 x 3.7 x 2.7 cm left thyroid mass. Subsequent images demonstrate needles advanced into a 3.3 x 1.9 x 1.6 cm right thyroid mass. IMPRESSION: 1. Successful ultrasound-guided fine needle aspiration of a 4.2 cm TI RADS 3 left thyroid mass. 2. Successful ultrasound-guided fine needle aspiration of a 3.3 Cm TI RADS 3 right thyroid mass. Reviewed, dictated and finalized at location A. IMPRESSION: 1. Successful ultrasound-guided fine needle aspiration of a 4.2 cm TI RADS 3 le ft thyroid mass. 2. Successful ultrasound-guided fine needle aspiration of a 3.3 Cm TI RADS 3 ri ght thyroid mass.
--- OUTSIDE RECORDS SUMMARY | 2025-04-11 12:39 | XMS_ITS | Encounter Summary ---
Author Organization [facility] Address [address] [place] [address] Care Team Providers Care Preschool Paraprofessional Name Role Phone Jose Guerrero MD Primary Care Provider [phone] Xander Valdez MD Primary Care Provider Encounter Details Date Type Department Care Team (Late st Contact Info) Description 12/17/2018 Abstract SFL CONVERSION [address] [place] [address] , Generic Conversion, Social History Tobacco Use [...] on filedocumented in this encounter Care Teams Preschool Paraprofessional Relationship Specialty Start Date End Date Jose Guerrero MD [address] [place] [phone] PCP - General FAMILY PRACTICE 05/01/19 09/09/21 Xander Valdez MD [address] [place] [phone] PCP - General FAMILY PRACTICE 09/10/21 documented as of this encounter
--- OUTSIDE RECORDS SUMMARY | 2025-04-11 12:39 | XMS_ITS | Clinical Summary ---
Author Organization [facility] Address [address] [place] [address] Care Team Providers Care [employer] Name Role Phone Xander Valdez MD Primary Care Provider [phone] Social History Tobacco Use Types Packs/Day Years [...] of 3 - 19+ 3-dose series) 10/30/1998 HPV Vaccines (1 - 3-dose SCD M series) 10/30/2006 Cervical Cancer Screening Pa p with HPV Testing (Age 30 to 64) Every 5 Years 10/30/2009 Cervical Cancer Screening with HPV 10/30/2009 Mammogram Screening 2019 COVID-19 Vaccine ( - 2024-2 6 season) 2025 03/03/2021 Meningococcal B Vaccine Aged Out No l [...] patient's age to complete this topic Insurance [employer] Care Teams Company [employer] Relationship Specialty Start Date End Date Xander Valdez MD [address] [place] [phone] PCP - General FAMILY PRACTICE 09/10/21
--- NOTE | 2025-04-11 13:48 | CY_PTH ---
PATIENT: Damien Vásquez LOC: [facility] U#:[id number] AGE/SX: 44/F ROOM: RE04/11/[address]: Leandra Vines, : 1980 BED: DIS: 04/11/2025 SPEC #: [id number] RECD: 04/11/25 13:52 STATUS: ARLYN REQ #: [id number] EDSON: 04/11/25 13:[address]: Jasmyn,Leandra Wyman DEPT: [facility] Cytology RECD BY: Rivka Corona MLT, ([facility]) Tissues: A - FNA Thyroid B - FNA Thyroid Procedures: Hematoxylin and Eosin Stain Cell Block Fine Needle Aspiration Evaluation Fna Additional Pass Fine Needle Aspiration Pathologist
== END 2025-04-11 12:36 | disposition home or self-care (01) ==
PROVIDERS: PCP Family Medicine; Visit Provider Family Medicine
DX: E04.1 Nontoxic single thyroid nodule (principal)
CPT/HCPCS: 10005; 10006; 88172; 88173; 88177; 88305